=== PATIENT | female | born 1960 | race Caucasian/White ===

== ENCOUNTER 2018-05-28 14:12 | Inpatient (IN) | payer OTHER ==
[~2018-05-28] VITALS: Ht 152.4 cm; Wt 72.6 kg
[~2018-05-28 14:12] MED LIST: ASPIR 8181 MG PO; BRILINTA60 MG PO; BRILINTA90 MG PO; COREG3.125 MG PO; FLEXERIL PO; HYDROCODON-ACE1 EAC7 PO; LIPITOR 20 MG T20 M1 PO; NICOTINE TRANSD14 M1 TRANSDERM; NITROGLYCERIN0.4 MG SUBLING; NITROSTAT0.4 M1 SL; PREDNISONE 20 M20 MG PO; TRIAMCINOLONE A80 G2 TOP
[2018-05-28] MEDS ORDERED: NOHOMEMEDICATIONS (14:24)
[2018-05-28 14:56] LABS: ABSOLUTE LYMPHOCYTES 1.7 thou/uL (0.8-5.3); ABSOLUTE MONOCYTES 0.7 thou/uL (0.0-1.2); ABSOLUTE NEUTROPHILS 7.5 thou/uL (1.6-8.1); BASOPHILS 0.5 %; EOSINOPHILS 0.4 %; HEMATOCRIT 45.6 % (37.0-47.0); HEMOGLOBIN 15.5 gm/dL (12.0-15.0); LYMPHOCYTES 17.5 %; MCV 88.3 fL (80.0-100.0); MONOCYTES 6.6 %; MPV 10.1 fl. (7.2-11.1); NUCLEATED RBCS 0 /100WBC; PLATELET COUNT* 179 thou/uL (150-400); RBC 5.17 mil/uL (4.20-5.00); RDW-CV 14.2 % (10.5-14.5); WBC 9.9 thou/uL (4.0-11.0)
[2018-05-28 15:11] LABS: ANION GAP 9 mmol/L (7-16); BUN 12 mg/dL (7-18); CALCIUM 9.1 mg/dL (8.5-10.1); CHLORIDE 101 mmol/L (98-107); CO2 27 mmol/L (21-32); CREATININE 0.8 mg/dL (0.6-1.3); GLUCOSE 107 mg/dL (70-99); SODIUM 137 mmol/L (136-145); TROPONIN-I LEVEL <0.06 ng/mL (<0.06)
[2018-05-28 15:23] LABS: ALBUMIN 3.9 g/dL (3.4-5.0); ALKALINE PHOSPHATASE 109 U/L (46-116); NT-PRO BRAIN NAT PEPTIDE 64 pg/mL (<300); SGOT 28 U/L (15-37); SGPT 37 U/L (30-65); TOTAL BILIRUBIN 0.7 mg/dL (<0.1-1.0); TOTAL PROTEIN 8.4 g/dL (6.4-8.2)
[2018-05-28 16:51] VITALS: BP 123/74
[2018-05-28 17:26] VITALS: BP 153/86
--- NOTE | 2018-05-28 18:04 | NUR ---
PT ADMITTED ON CARDIAC FLOOR AT 1700 ACCOMPANIED BY ER NURSE AND DAUGHTER. PT IS AOX4 SR ON RADIOLOGIST PHYSICIAN. ON 2 L NC. SATURATION IS 93% .NO SIGN OF SOB. PT DENIES SOA. ADMISSION ASSESSMENT AND HISTORY PERFORMED. PT DAUGHTER IN ROOM. VSS. IV ROCEPHIN STARTED ORDERED. PT HAS NO COMPLAINT.WILL CONTINUE TO MONITOR PT
[2018-05-28 20:00] VITALS: BP 122/79
[2018-05-28 23:59] VITALS: BP 100/65
[2018-05-29 04:00] VITALS: BP 123/68
[2018-05-29 05:22] LABS: HEMATOCRIT 44.3 % (37.0-47.0); HEMOGLOBIN 14.7 gm/dL (12.0-15.0); MCH 29.7 pg (26.0-34.0); MCHC 33.3 g/dL (28.0-37.0); MCV 89.3 fL (80.0-100.0); MPV 10.2 fl. (7.2-11.1); NUCLEATED RBCS 0 /100WBC; PLATELET COUNT* 184 thou/uL (150-400); RBC 4.96 mil/uL (4.20-5.00)
[2018-05-29 05:30] LABS: CALCIUM 9.4 mg/dL (8.5-10.1)
--- NOTE | 2018-05-29 05:38 | NUR ---
ASSUMED PT CARE AT 1930. ASSESSMENT COMPLETED CHARTED. NO C/O PAIN OR DISCOMFORT. ABLE TO MAKE NEEDS KNOWN. PT IS RESTING IN BED AT THIS TIME. O2 ON AT 3L. UP AD TERRI. VSS. WILL CONTINUE TO MONITOR.
[2018-05-29 06:56] LABS: ABSOLUTE LYMPHOCYTES 0.8 thou/uL (0.8-5.3); ABSOLUTE MONOCYTES 0.1 thou/uL (0.0-1.2); ABSOLUTE NEUTROPHILS 10.1 thou/uL (1.6-8.1); PLATELET ESTIMATE ADEQUATE
[2018-05-29 06:57] LABS: ANISOCYTOSIS 1+; POIKILOCYTOSIS 1+
[2018-05-29 08:00] VITALS: BP 130/79
--- NOTE | 2018-05-29 10:35 | NUR ---
assumed pt care report received from nurse. pt is aox4 sr on cardiac catheterization technologist. on 2 l nc saturation is 94%. pt ate breakfast and rocephin given via iv line. discharge pernding at this time after rest and excercise testing. pt now on 1 l nc and saturation is 92%. will continue to titrate oxygen and follow pt improvement.
--- NOTE | 2018-05-29 10:36 | EKG ---
[place] [address] ELECTROCARDIOGRAM REPORT Name: HAYLIE COBURN Room: [address] ADM IN ..#: [id number] Admission: 05/28/18 Attend Phys: Manuelito Belle MD Discharge: Date of : 56 Report #: [id number] THIS REPORT FOR: //name// [facility] ED Test Date: 2018-05-28 Test Time: 14:26:12 Pat Name: HAYLIE COBURN Department: Room: [facility] Gender: F Algology Teacher: Ivan GONZALES RN : 1960 Requested By: Jasson Jiménez Order Number: [id number] MD: Truong Capone Measurements Intervals [place] Rate: 86 P: 50 LA: 150 QRS: 18 QRSD: 93 T: 15 QT: 373 QTc: 446 Interpretive Statements Sinus rhythm Abnormal inferior Q waves Compared to ECG 05/04/2016 07:42:56 Ventricular premature complex(es) no longer present Myocardial infarct finding still present Electronically Signed On 05-29-2018 10:36:40 CDT by Truong Capone [email or web address] <ELECTRONICALLY SIGNED> By: Truong Capone MD, FAC 05/29/18 1036 1426 1426 Truong Capone MD, [facility] /EPI
[2018-05-29 12:31] VITALS: BP 128/73
--- NOTE | 2018-05-29 13:14 | NUR ---
pp did not do well on rest and activity test with RT today. pt saturation is 89 on 1 l nc and 88 on RA. nurse contacted doctor. doctor wants pt to stay for one or two more days and to be changed to medsurg status. will proceed with care
[2018-05-29 16:00] VITALS: BP 127/70
--- NOTE | 2018-05-29 17:46 | NUR ---
NEW IV LINE PLACED IN PT RIGHT WRIST. IV PREDNISONE GIVEN ORDERED.
[2018-05-29 20:15] VITALS: BP 136/55
[2018-05-30] VITALS: BP 97/71
[2018-05-30 04:00] VITALS: BP 143/74
[2018-05-30 04:52] LABS: ABSOLUTE LYMPHOCYTES 0.7 thou/uL (0.8-5.3); ABSOLUTE MONOCYTES 0.7 thou/uL (0.0-1.2); ABSOLUTE NEUTROPHILS 17.1 thou/uL (1.6-8.1); BASOPHILS 0.1 %; HEMATOCRIT 41.2 % (37.0-47.0); HEMOGLOBIN 13.4 gm/dL (12.0-15.0); LYMPHOCYTES 3.9 %; MCH 29.2 pg (26.0-34.0); MCHC 32.6 g/dL (28.0-37.0); MCV 89.5 fL (80.0-100.0); MONOCYTES 3.7 %; MPV 10.6 fl. (7.2-11.1); NUCLEATED RBCS 0 /100WBC; PLATELET COUNT* 191 thou/uL (150-400); POLYS 92.3 %; WBC 18.5 thou/uL (4.0-11.0)
[2018-05-30 05:22] LABS: CALCIUM 9.2 mg/dL (8.5-10.1); CREATININE 0.8 mg/dL (0.6-1.3); POTASSIUM 4.7 mmol/L (3.5-5.1)
[2018-05-30 08:00] VITALS: BP 146/79
--- NOTE | 2018-05-30 08:14 | NUR ---
REPORT GIVEN TO ONCOMING NURSE.
[2018-05-30 09:47] VITALS: BP 146/79
[2018-05-30] MEDS ORDERED: NITROGLYCERIN0.4 MG SUBLING (09:58)
[2018-05-30] MEDS ORDERED: ASPIR 8181 MG PO (09:59)
[2018-05-30] MEDS ORDERED: LIPITOR 20 MG T20 M1 PO (10:00)
[2018-05-30] MEDS ORDERED: CARVEDILOL3.125 MG PO (10:01)
[2018-05-30] MEDS ORDERED: BRILINTA90 MG PO (10:02)
[2018-05-30] MEDS ORDERED: PREDNISONE 10 M10 MG PO (10:06)
[2018-05-30] MEDS ORDERED: ACCUNEB SO1.25 MG/1 INH (10:08)
[2018-05-30] MEDS ORDERED: CEFDINIR300 MG PO (10:09)
[2018-05-30] MEDS ORDERED: PROTONIX40 M1 PO (10:34)
--- NOTE | 2018-05-30 10:40 | NUR ---
assumed pt care at 0700 report received from nurse p is aox4 ready to go home. rocephin given iv. pt ate breakfast. discharge order received. pt is to go home with 4 new medicines for bronchitis treatment. pt says she no longer takes her heart healthy medicines from 2 years ago. nurse did not include these medicine on pt discharge list and dr lr is aware of that. nurse educated pt on need to excercise, control her diet and to follow up with her primary doctor. discharge pending. will continue to monitor pt
[2018-05-30 10:50] VITALS: BP 146/79
[2018-05-30 10:51] VITALS: BP 146/79
--- NOTE | 2018-05-30 11:04 | NUR ---
PT LEFT FLOOR AT 1100 ACCOMPANIED BY RELATIVES. DISCHARGE INSTRUCTIONS GIVEN.
== END 2018-05-30 11:05 | disposition home or self-care (01) | DRG 193 ==
LOC: M.ERS 14:12 → M.TBA-ER 15:55 → M.2W 15:55
PROVIDERS: Emergency Medicine Emergency Medical Services; ADMIT Internal Medicine
DX: J18.9 Pneumonia, unspecified organism (principal); J96.01 Acute respiratory failure with hypoxia; J44.0 Chronic obstructive pulmonary disease with (acute) lower respiratory infection; J44.1 Chronic obstructive pulmonary disease with (acute) exacerbation; F17.210 Nicotine dependence, cigarettes, uncomplicated; J20.9 Acute bronchitis, unspecified; I25.2 Old myocardial infarction; Z95.5 Presence of coronary angioplasty implant and graft; Z79.02 Long term (current) use of antithrombotics/antiplatelets; Z79.82 Long term (current) use of aspirin; Z79.899 Other long term (current) drug therapy; Z82.0 Family history of epilepsy and other diseases of the nervous system; Z71.6 Tobacco abuse counseling

== ENCOUNTER 2021-04-16 21:04 | Inpatient (IN) | payer OTHER ==
[~2021-04-16] VITALS: Ht 152.4 cm; Wt 68.0 kg
[~2021-04-16 21:04] MED LIST changes: +ACCUNEB SO1.25 MG/1 INH; +CARVEDILOL3.125 MG PO; +CEFDINIR300 MG PO; +NOHOMEMEDICATIONS; +PREDNISONE 10 M10 MG PO; +PROTONIX40 M1 PO
[2021-04-16 21:29] VITALS: BP 143/87
[2021-04-16 22:10] LABS: CALCIUM 8.5 mg/dL (8.5-10.1); CREATININE 0.8 mg/dL (0.6-1.3); POTASSIUM 4.9 mmol/L (3.5-5.1)
[2021-04-16 22:17] LABS: ABSOLUTE LYMPHOCYTES 1.2 thou/uL (0.8-5.3); ABSOLUTE MONOCYTES 0.9 thou/uL (0.0-1.2); ABSOLUTE NEUTROPHILS 10.8 thou/uL (1.6-8.1); BASOPHILS 0.3 %; HEMOGLOBIN 16.3 gm/dL (12.0-15.0); LYMPHOCYTES 9.2 %; MCH 30.8 pg (26.0-34.0); MCV 90.4 fL (80.0-100.0); MONOCYTES 6.7 %; MPV 10.7 fl. (7.2-11.1); NUCLEATED RBCS 0 /100WBC; PLATELET COUNT* 192 thou/uL (150-400); POLYS 83.8 %; RBC 5.31 mil/uL (4.20-5.00); RDW-CV 14.6 % (10.5-14.5); WBC 12.9 thou/uL (4.0-11.0)
[2021-04-16 22:24] LABS: PCO2 39.1 mmHg (35.0-45.0); pH 7.442 (7.340-7.450)
[2021-04-16 23:24] LABS: ALBUMIN 3.1 g/dL (3.4-5.0); MAGNESIUM 1.7 mg/dL (1.8-2.4); TOTAL BILIRUBIN 1.2 mg/dL (<0.1-1.0); TOTAL PROTEIN 7.7 g/dL (6.4-8.2)
[2021-04-16 23:51] LABS: INFLUENZA A ANTIGEN Negative (Negative); INFLUENZA B ANTIGEN Negative (Negative)
[2021-04-17 02:30] VITALS: BP 99/66
[2021-04-17 06:00] VITALS: BP 90/54
--- NOTE | 2021-04-17 08:39 | EKG ---
[place] [address] ELECTROCARDIOGRAM REPORT Name: HAYLIE COBURN Room: [place] [address] ADM IN [facility]#: [id number] Admission: 04/16/21 Attend Phys: Shelley Marrero, Discharge: Date of : 56 Date of Service: 04/16/21 2134 Report #: [id number] THIS REPORT FOR: //name// [facility] ED Test Date: 2021-04-16 Test Time: 21:34:16 Pat Name: HAYLIE COBURN Department: Room: [facility] Gender: F Color Sprayer: [place] : 1960 Requested By: Kayce Ortega Order Number: [id number] MD: Kvng Gore Measurements Intervals [place] Rate: 105 P: 49 MI: 145 QRS: 22 QRSD: 87 T: -17 QT: 334 QTc: 442 Interpretive Statements Sinus tachycardia Unifocal premature ventricular contractions Inferior infarct, age indeterminate, possible Compared to ECG 05/28/2018 14:26:12 Possible myocardial infarct finding now present Electronically Signed On 04-17-2021 8:39:24 FINANCIAL OPERATIONS CONSULTANT by Kvng Gore [email or web address] <ELECTRONICALLY SIGNED> By: Kvng Gore MD, FACC 04/17/21 0839 33 33 Kvng Gore MD, FACC /EPI
[2021-04-17 10:00] VITALS: BP 114/79
--- NOTE | 2021-04-17 12:17 | NUR ---
DAUGHTER CALLED UP TO CHECK ON PT AND INFORMED THIS NURSE WE NEED TO LOOK AT RASH UNDER PT'S BREAST.
[2021-04-17 14:00] VITALS: BP 115/68
--- NOTE | 2021-04-17 14:27 | NUR ---
Pt came to the ER for Respiratory Distress on 04/16/21. She is currently being tested for Covid - called dtr - Zo to complete assessment. Pt lives with her youngest dtr Oni Jacobo in a house. Pt was previously independent in ADL's and Mobility. Pt has no hx of HH/DME/or SNF as pt is private pay. Pt does not have a PCP. Dtr reports pt will say anything to get discharged so she can return home to return to smoking. Dtr is concerned pt has an extensive rash under her breast and feels that it is staph infection and wants to make sure it is treated. Agreed to share information with nurse. CM to continue to follow for discharge planning.
[2021-04-17 18:00] VITALS: BP 119/83
[2021-04-17 22:39] VITALS: BP 131/73
[2021-04-18] VITALS (7 sets, daily range): BP systolic 102–127; BP diastolic 53–83
--- NOTE | 2021-04-18 10:57 | NUR ---
REPORT GIVEN TO CARISA CRUZ AND PT TRASFERRED TO ROOM 108.
--- NOTE | 2021-04-18 18:43 | NUR ---
PATIENT CAME HERE FROM ER TODAY, AND PATIENT IS POSITIVE FOR COVID. PATIENT HAS IV SITE RIGHT AC. PATIENT IS ON 10 LITERS HIGH FLOW NC. PATIENT DESATS TO THE 70'S WHEN OXYGEN IS OFF. PATIENT REMINDED TO KEEP OXYGEN ON AND TO CALL WHEN SHE NEEDS TO USE THE COMMODE. SHE WAS TOLD NOT TO WALK TO THE BATHROOM. PATIENT HAS ACCUCHECKS AND GIVING INSULIN PER ORDER. PATIENT HAS BEEN IN CHAIR MOST OF THE DAY TALKING ON TELEPHONE.
[2021-04-19] VITALS: BP 121/72
--- NOTE | 2021-04-19 00:54 | NUR ---
The patient is alert. SR on the monitor. Call light within reach. Denies SOB or CP.
[2021-04-19 04:00] VITALS: BP 116/55
[2021-04-19 04:22] LABS: HEMATOCRIT 41.5 % (37.0-47.0); MCH 30.6 pg (26.0-34.0); MCHC 33.4 g/dL (28.0-37.0); MCV 91.9 fL (80.0-100.0); NUCLEATED RBCS 0 /100WBC; PLATELET COUNT* 193 thou/uL (150-400); RBC 4.51 mil/uL (4.20-5.00); RDW-CV 14.4 % (10.5-14.5)
[2021-04-19 04:26] LABS: CALCIUM 8.5 mg/dL (8.5-10.1); CREATININE 0.7 mg/dL (0.6-1.3); POTASSIUM 4.3 mmol/L (3.5-5.1)
[2021-04-19 05:09] LABS: HEMOGLOBIN 13.8 gm/dL (12.0-15.0)
[2021-04-19 06:41] LABS: ABSOLUTE LYMPHOCYTES 0.1 thou/uL (0.8-5.3); ABSOLUTE MONOCYTES 0.5 thou/uL (0.0-1.2); ABSOLUTE NEUTROPHILS 11.4 thou/uL (1.6-8.1); PLATELET ESTIMATE ADEQUATE
[2021-04-19 08:00] VITALS: BP 123/74
[2021-04-19 12:00] VITALS: BP 109/69
--- NOTE | 2021-04-19 16:28 | NUR ---
CM FOLLOWUP PT NOT MED CLEAR FOR DC. CM TO FOLLOW FOR NEEDS. PT IS PRIVATE PAY.
[2021-04-19 16:42] VITALS: BP 137/73
--- NOTE | 2021-04-19 18:57 | NUR ---
THIS PATIENT HAD A QUIET DAY. SHE WAS ON 9 LITERS PER NC THIS AM. PATIENT BREATH SOUNDS ARE DIMINISHED, BUT SHE IS COUGHING UP SOME SPUTUM TODAY. WAS UP IN ROOM TODAY. MAINLY WAS IN BED TALKING ON TELEPHONE. CONTINUE TO CHECK BLOOD SUGARS AC AND HS.
[2021-04-20 00:27] VITALS: BP 121/81
[2021-04-20 04:00] VITALS: BP 151/78
[2021-04-20 07:40] VITALS: BP 148/84
[2021-04-20 12:00] VITALS: BP 162/80
--- NOTE | 2021-04-20 16:13 | NUR ---
CM FOLLOWUP PT MED CLEAR FOR DC HOME. PT REQUIRES HOME O2 AT DC. [facility] TO PROVIDE O2 AND [facility] TO COVER COST OF ONE MONTH OF 02 PT IS PRIVATE PAY. [facility] - [phone]
[2021-04-20] MEDS ORDERED: VITAMIN C1000 MG PO (16:47)
[2021-04-20] MEDS ORDERED: ADVAIR 250-501 EACH INH (16:47)
[2021-04-20] MEDS ORDERED: PROAIR HFA8.5 GM INH (16:47)
[2021-04-20] MEDS ORDERED: VITAMIN D325 MC2 PO (16:47)
[2021-04-20] MEDS ORDERED: PREDNISONE 10 M10 MG PO (16:47)
[2021-04-20 16:50] VITALS: BP 162/80
[2021-04-20 18:57] VITALS: BP 162/80
== END 2021-04-20 18:19 | disposition home or self-care (01) | DRG 177 ==
LOC: M.ERS 21:04 → M.TBA-ER 22:32 → M.ORTHSURG 22:32
PROVIDERS: Emergency Medicine; Internal Medicine; ADMIT Internal Medicine; ATTEND Internal Medicine
PROC: 5A0945A Assistance with Respiratory Ventilation, 24-96 Consecutive Hours, High Flow/Velocity Cannula (ICD-10-PCS; principal; 2021-04-17)
PROC: 5A09357 Assistance with Respiratory Ventilation, Less than 24 Consecutive Hours, Continuous Positive Airway Pressure (ICD-10-PCS; principal; 2021-04-17)
DX: U07.1 COVID-19 (principal); J12.82 Pneumonia due to coronavirus disease 2019; J44.1 Chronic obstructive pulmonary disease with (acute) exacerbation; J44.0 Chronic obstructive pulmonary disease with (acute) lower respiratory infection; B17.9 Acute viral hepatitis, unspecified; I25.2 Old myocardial infarction; Z95.5 Presence of coronary angioplasty implant and graft